=== PATIENT | female | born 1975 | race Two or more races ===

== ENCOUNTER → 2017-10-16 | Outpatient (CLI) | payer MEDICAID | LOC: BRMIMAGING 15:37 | PROVIDERS: ATTEND Internal Medicine Rheumatology | DX: M06.042 Rheumatoid arthritis without rheumatoid factor, left hand (principal); M06.041 Rheumatoid arthritis without rheumatoid factor, right hand; M51.37 Other intervertebral disc degeneration, lumbosacral region | CPT/HCPCS: 72100-PO; 72202-PO; 73120-PO ==